=== PATIENT | female | born 1940 | race African-American/Black ===

== ENCOUNTER 2024-02-10 14:45 | Inpatient (IN) | payer OTHER ==
[2024-02-10 17:11] VITALS: BMI 15.5
[2024-02-10] MEDS ORDERED: IBUPROFEN 600 MG TABLET (FP) PO PRN (17:45)
[2024-02-10] MEDS ORDERED: BENZOCAINE/MENTHOL (CHLORASEPTIC ) LOZENGE MM PRN (17:45)
[2024-02-10] MEDS ORDERED: IBUPROFEN 400 MG TABLET (FP) PO PRN (17:45)
[2024-02-10] MEDS ORDERED: MAG HYDROX/AL HYDROX/SIMETH 30 ML UNIT-DOSE CUP PO PRN (17:45)
[2024-02-10] MEDS ORDERED: BENZONATATE 200 MG CAPSULE PO PRN (17:45)
[2024-02-10] MEDS ORDERED: MAGNESIUM HYDROX 2400MG/30ML ORAL SUSPENSION 30 ML CUP PO PRN (17:45)
[2024-02-10] MEDS ORDERED: NICOTINE POLACRILEX 2 MG GUM BUC PRN (17:45)
[2024-02-10] MEDS ORDERED: POLYETHYLENE GLYCOL (HEALTHYLAX) 3350 17 GM PACKET PO PRN (17:45)
[2024-02-10] MEDS ORDERED: guaiFENesin 600 MG TABLET.ER (FP) PO PRN (17:45)
[2024-02-10] MEDS ORDERED: NICOTINE POLACRILEX 2 MG LOZENGE BC PRN (17:45)
[2024-02-10] MEDS ORDERED: LOPERAMIDE HCL 2 MG CAPSULE PO PRN (17:45)
[2024-02-10] MEDS ORDERED: P-EPHED 60MG/TRIPROLIDI 2.5MG TABLET PO PRN (17:45)
[2024-02-10] MEDS ORDERED: ALBUTEROL SO4 2.5/IPRATROPIUM 0.5 INH SOL 3 ML VIAL.NEB. NEB PRN (17:47)
[2024-02-10] MEDS ORDERED: INSULIN (NOVOLOG) ASPART 100 UNITS/ML 10ML VIAL ONE (20:10)
[2024-02-10] MEDS: INSULIN ASPART SLIDING SCALE (NOVOLOG) 1 VIAL SQ SCH (20:17)
[2024-02-10] MEDS: THIAMINE 100 MG TABLET PO SCH (22:33)
[2024-02-10] MEDS: MELATONIN 5 MG TABLETS PO SCH (22:33)
[2024-02-10] MEDS: ATORVASTATIN CA 20 MG TABLET (FP) PO SCH (22:33)
[2024-02-11] MEDS: EMPAGLIFLOZIN (JARDIANCE) 25 MG TABLET PO SCH (07:13)
[2024-02-11] MEDS: glipiZIDE 10 MG TABLET (FP) PO SCH (07:14)
[2024-02-11] MEDS ORDERED: INSULIN ASPART SLIDING SCALE (NOVOLOG) 1 VIAL SQ ONE (07:23)
[2024-02-11] MEDS: PRENATAL VITAMINS W/ FOLIC ACID TABLET (FP) PO SCH (10:55)
[2024-02-11 14:44] LABS: POTASSIUM 4.6 mmol/L (3.5-5.1)
[2024-02-11 14:50] LABS: ALBUMIN 2.9 g/dl (3.4-5.0)
[2024-02-11 14:51] LABS: BLOOD UREA NITROGEN 14.7 mg/dL (7-18)
[2024-02-11 14:54] LABS: CREATININE 0.9 mg/dL (0.55-1.3)
[2024-02-11 14:55] LABS: BILIRUBIN,TOTAL 1.4 mg/dL (0.2-1); TOT PROT 6.8 g/dl (6.4-8.2)
[2024-02-11 14:57] LABS: HEMATOCRIT 47.9 % (32.4-45.2); HEMOGLOBIN 14.7 GM/dL (10.7-15.3); MCH 22.6 pg (25.7-33.7); MCHC 30.8 g/dl (32.0-36.0); MEAN CELL VOLUME 73.4 fl (80-96); PLATELET COUNT 145 10^3/uL (134-434); RBC 6.52 M/mm3 (3.60-5.2); RDW 16.5 % (11.6-15.6); WHITE BLOOD COUNT 4.2 K/mm3 (4.0-10.0)
[2024-02-11] MEDS ORDERED: INSULIN (NOVOLOG) ASPART 100 UNITS/ML 10ML VIAL ONE (17:28)
[2024-02-11] MEDS: GABAPENTIN 300 MG CAPSULE PO SCH (17:29)
[2024-02-11] MEDS: ALBUTEROL SO4 2.5/IPRATROPIUM 0.5 INH SOL 3 ML VIAL.NEB. NEB ONE (21:09)
[2024-02-12] MEDS: OLANZapine 2.5 MG TABLET PO SCH (00:40)
[2024-02-12] MEDS ORDERED: INSULIN (NOVOLOG) ASPART 100 UNITS/ML 10ML VIAL ONE (06:20)
[2024-02-12] MEDS ORDERED: glipiZIDE 5 MG TABLET (FP) ONE (06:57)
[2024-02-13] MEDS ORDERED: glipiZIDE 5 MG TABLET (FP) ONE (07:19)
[2024-02-13] MEDS ORDERED: INSULIN (NOVOLOG) ASPART 100 UNITS/ML 10ML VIAL ONE (11:52)
[2024-02-14] MEDS ORDERED: glipiZIDE 5 MG TABLET (FP) ONE (07:19)
[2024-02-14] MEDS ORDERED: INSULIN (NOVOLOG) ASPART 100 UNITS/ML 10ML VIAL ONE ×2 (11:57→21:51)
[2024-02-14] MEDS: ACETAMINOPHEN 325 MG TABLET (FP) PO PRN (15:57)
[2024-02-15] MEDS ORDERED: glipiZIDE 5 MG TABLET (FP) ONE (07:35)
[2024-02-15] MEDS ORDERED: INSULIN (NOVOLOG) ASPART 100 UNITS/ML 10ML VIAL ONE ×2 (12:16→16:40)
[2024-02-16] MEDS ORDERED: INSULIN (NOVOLOG) ASPART 100 UNITS/ML 10ML VIAL ONE ×3 (06:33→22:15)
[2024-02-17] MEDS ORDERED: INSULIN (NOVOLOG) ASPART 100 UNITS/ML 10ML VIAL ONE ×3 (06:21→22:06)
[2024-02-18] MEDS: sitaGLIPtin PHOSPHATE 50 MG TABLET PO SCH (11:12)
[2024-02-18] MEDS ORDERED: INSULIN (NOVOLOG) ASPART 100 UNITS/ML 10ML VIAL ONE (12:25)
[2024-02-19] MEDS ORDERED: INSULIN (NOVOLOG) ASPART 100 UNITS/ML 10ML VIAL ONE ×4 (07:08→21:57)
[2024-02-19 07:29] VITALS: RESP 18
[2024-02-20] MEDS ORDERED: INSULIN (NOVOLOG) ASPART 100 UNITS/ML 10ML VIAL ONE (11:58)
[2024-02-20 17:12] VITALS: BP 109/63; PULSE 99; TEMP 98
== END 2024-02-20 21:45 | disposition short-term general hospital (02) | DRG 895 ==
LOC: YASAS 14:45 → Y3NR 19:42 → Y5N 02-11 14:46
PROVIDERS: ADMIT Allergy & Immunology; ATTEND Psychiatry & Neurology Pain Medicine
PROC: HZ42ZZZ Group Counseling for Substance Abuse Treatment, Cognitive-Behavioral (ICD-10-PCS; principal; 2024-02-10)
DX: F14.20 Cocaine dependence, uncomplicated (principal); F20.0 Paranoid schizophrenia; Z68.1 Body mass index [BMI] 19.9 or less, adult; I11.0 Hypertensive heart disease with heart failure; I50.9 Heart failure, unspecified; E78.5 Hyperlipidemia, unspecified; E11.9 Type 2 diabetes mellitus without complications; Z79.84 Long term (current) use of oral hypoglycemic drugs; R62.7 Adult failure to thrive; R06.02 Shortness of breath; R60.0 Localized edema; M54.50 Low back pain, unspecified; G89.29 Other chronic pain
CPT/HCPCS: 36415; 71045-TC-FY; 80053; 80305; 80307; 82962; 85027; 86780; 87811; 93005; 93010; 94640

== ENCOUNTER 2024-02-20 19:12 | Inpatient (IN) | payer OTHER ==
[2024-02-20] MEDS ORDERED: GABAPENTIN 300 MG CAPSULE ONE (20:46)
[2024-02-20] MEDS ORDERED: FUROSEMIDE 40 MG/4 ML INJECTABLE VIAL ONE (20:47)
[2024-02-20 20:58] LABS: HEMOGLOBIN 13.3 GM/dL (10.7-15.3); MCH 22.5 pg (25.7-33.7); MEAN CELL VOLUME 72.7 fl (80-96); MEAN PLT VOLUME 10.2 fl (7.5-11.1); PLATELET COUNT 181 10^3/uL (134-434); RBC 5.91 M/mm3 (3.60-5.2); RDW 16.6 % (11.6-15.6); WHITE BLOOD COUNT 7.6 K/mm3 (4.0-10.0)
[2024-02-20] MEDS: GABAPENTIN 300 MG CAPSULE PO ONE (20:58)
[2024-02-20] MEDS: FUROSEMIDE 40 MG/4 ML INJECTABLE VIAL IVPUSH ONE (20:58)
[2024-02-20 21:09] LABS: CHLORIDE 98 mmol/L (98-107); SODIUM 136 mmol/L (136-145)
[2024-02-20 21:11] LABS: BLOOD UREA NITROGEN 38.8 mg/dL (7-18); CO2 29 mmol/L (21-32); GLUCOSE,RANDOM 183 mg/dL (74-106)
[2024-02-20 21:13] LABS: ANION GAP 9 mmol/L (4-13); POTASSIUM 6.5 mmol/L (3.5-5.1)
[2024-02-20 21:14] LABS: CREATININE 1.1 mg/dL (0.55-1.3); SGOT/AST 177 U/L (15-37); SGPT/ALT 126 U/L (13-61)
[2024-02-20 21:18] LABS: ALK PHOS 382 U/L (45-117)
[2024-02-20] MEDS ORDERED: SODIUM ZIRCONIUM CYCLOSILICATE (LOKELMA) 10 GM PACKET ONE (21:18)
[2024-02-20 21:19] LABS: N-TERMINAL BNP 19782.5 pg/ml (5-450)
[2024-02-20] MEDS: SODIUM ZIRCONIUM CYCLOSILICATE (LOKELMA) 5 GM PACKET PO SCH (21:24)
[2024-02-20] MEDS ORDERED: CALCIUM GLUC IN NACL, ISO-OSM 1 GM/50 ML BAG IVPB ONE (21:40)
[2024-02-20] MEDS: CALCIUM GLUCONATE 10% - 1,000 MG/10 ML VIAL IVPUSH ONE (21:50)
[2024-02-20 22:05] LABS: HIV INTERPRETATION NEGATIVE (NEGATIVE)
[2024-02-20 22:31] LABS: ANION GAP 9 mmol/L (4-13); CALCIUM 9.1 mg/dL (8.5-10.1); CHLORIDE 99 mmol/L (98-107); CO2 27 mmol/L (21-32); GLUCOSE,RANDOM 182 mg/dL (74-106); POTASSIUM 6.4 mmol/L (3.5-5.1); SODIUM 136 mmol/L (136-145)
[2024-02-20 22:34] LABS: CREATININE 1.1 mg/dL (0.55-1.3)
[2024-02-20] MEDS ORDERED: INSULIN REGULAR HUMAN 100 UNITS/ML *VIAL ONE (23:08)
[2024-02-20] MEDS ORDERED: DEXTROSE 50%-WATER 25 GM/50 ML DISP.SYRIN ONE (23:08)
[2024-02-20] MEDS: DEXTROSE 50%-WATER - 25 GM/50 ML VIAL IVPUSH ONE (23:39)
[2024-02-20] MEDS: INSULIN REGULAR HUMAN 100 UNITS/ML *VIAL IVPUSH ONE (23:39)
[2024-02-21] MEDS: FUROSEMIDE 40 MG/4 ML INJECTABLE VIAL IVPUSH SCH ×2 (00:09→12:20)
[2024-02-21] MEDS: INSULIN ASPART SLIDING SCALE (NOVOLOG) 1 VIAL SQ SCH (06:32)
[2024-02-21 08:14] LABS: BASO % 0.4 % (0-2.0); EOS % 0.1 % (0-4.5); HEMATOCRIT 40.1 % (32.4-45.2); HEMOGLOBIN 12.6 GM/dL (10.7-15.3); LYMPH % 17.5 % (8-40); MCH 22.8 pg (25.7-33.7); MCHC 31.3 g/dl (32.0-36.0); MEAN CELL VOLUME 72.8 fl (80-96); MEAN PLT VOLUME 10.5 fl (7.5-11.1); MONO % 12.5 % (3.8-10.2); NEUT % 69.5 % (42.8-82.8); PLATELET COUNT 171 10^3/uL (134-434); RBC 5.51 M/mm3 (3.60-5.2); RDW 16.1 % (11.6-15.6); WHITE BLOOD COUNT 7.9 K/mm3 (4.0-10.0)
[2024-02-21 08:50] LABS: POTASSIUM 5.7 mmol/L (3.5-5.1)
[2024-02-21 08:54] LABS: ALBUMIN 2.8 g/dl (3.4-5.0); MAGNESIUM 2.5 mg/dL (1.8-2.4)
[2024-02-21 08:55] LABS: BLOOD UREA NITROGEN 42.2 mg/dL (7-18)
[2024-02-21 08:57] LABS: CREATININE 1.1 mg/dL (0.55-1.3)
[2024-02-21 08:59] LABS: PHOSPHOROUS 6.2 mg/dL (2.5-4.9); TOT PROT 6.5 g/dl (6.4-8.2)
[2024-02-21 09:00] LABS: BILIRUBIN,TOTAL 0.9 mg/dL (0.2-1)
[2024-02-21] MEDS: GABAPENTIN 300 MG CAPSULE PO SCH (09:38)
[2024-02-21] MEDS: HEPARIN NA (PORCINE) 5,000 UNITS/ML 1ML VIAL SQ SCH (09:38)
[2024-02-21] MEDS: FLUTICASONE/UMECLIDIN/VILANTER(100-62.5-25 TRELEGY ELLIPTA) INAHLER IH SCH (10:30)
[2024-02-21] MEDS: OLANZapine 2.5 MG TABLET PO SCH (21:44)
[2024-02-21] MEDS: SODIUM ZIRCONIUM CYCLOSILICATE (LOKELMA) 5 GM PACKET PO SCH (21:45)
[2024-02-21] MEDS ORDERED: ATORVASTATIN CA 20 MG TABLET (FP) PO SCH (22:00)
[2024-02-22] MEDS: FUROSEMIDE 40 MG/4 ML INJECTABLE VIAL IVPUSH SCH (06:12)
[2024-02-22 08:02] LABS: BASO % 0.8 % (0-2.0); EOS % 0.3 % (0-4.5); HEMATOCRIT 38.5 % (32.4-45.2); HEMOGLOBIN 11.9 GM/dL (10.7-15.3); LYMPH % 18.6 % (8-40); MCH 22.5 pg (25.7-33.7); MCHC 30.9 g/dl (32.0-36.0); MEAN CELL VOLUME 72.9 fl (80-96); MEAN PLT VOLUME 10.2 fl (7.5-11.1); MONO % 12.5 % (3.8-10.2); NEUT % 67.8 % (42.8-82.8); PLATELET COUNT 171 10^3/uL (134-434); RBC 5.29 M/mm3 (3.60-5.2); RDW 15.9 % (11.6-15.6); WHITE BLOOD COUNT 5.9 K/mm3 (4.0-10.0)
[2024-02-22 08:14] LABS: POTASSIUM 4.1 mmol/L (3.5-5.1)
[2024-02-22 08:18] LABS: ALBUMIN 2.6 g/dl (3.4-5.0); BLOOD UREA NITROGEN 37.4 mg/dL (7-18)
[2024-02-22 08:23] LABS: TOT PROT 6.3 g/dl (6.4-8.2)
[2024-02-22] MEDS: MELATONIN 5 MG TABLETS PO PRN (21:31)
[2024-02-22 23:58] VITALS: BMI 19.3
[2024-02-23 08:31] LABS: INR 1.25 (0.83-1.09)
[2024-02-23 08:41] LABS: HEMATOCRIT 37.2 % (32.4-45.2); HEMOGLOBIN 11.5 GM/dL (10.7-15.3); MCH 22.5 pg (25.7-33.7); MCHC 30.9 g/dl (32.0-36.0); MEAN CELL VOLUME 72.8 fl (80-96); MEAN PLT VOLUME 9.7 fl (7.5-11.1); PLATELET COUNT 175 10^3/uL (134-434); RBC 5.11 M/mm3 (3.60-5.2); RDW 15.9 % (11.6-15.6); WHITE BLOOD COUNT 5.8 K/mm3 (4.0-10.0)
[2024-02-23 08:51] LABS: POTASSIUM 3.9 mmol/L (3.5-5.1)
[2024-02-23 08:57] LABS: ALBUMIN 2.5 g/dl (3.4-5.0); BLOOD UREA NITROGEN 30.1 mg/dL (7-18); CALCIUM 8.6 mg/dL (8.5-10.1)
[2024-02-23 09:00] LABS: CREATININE 0.9 mg/dL (0.55-1.3)
[2024-02-23 09:01] LABS: BILIRUBIN,TOTAL 0.8 mg/dL (0.2-1); TOT PROT 6.1 g/dl (6.4-8.2)
[2024-02-23] MEDS: TORSEMIDE 20 MG TABLET (FP) PO SCH (10:20)
[2024-02-23] MEDS: INSULIN (LEVEMIR) 100 UNITS/ML UNITS SQ SCH (21:08)
[2024-02-23 22:33] VITALS: BP 127/67; PULSE 99; RESP 20; TEMP 98.4
[2024-02-23] MEDS ORDERED: INSULIN (LEVEMIR) 100 UNITS/ML UNITS SQ SCH (22:37)
== END 2024-02-24 01:15 | disposition home or self-care (01) | DRG 291 ==
LOC: JER 19:12 → JERBED 21:35 → J4W 02-21 01:49
PROVIDERS: ADMIT Internal Medicine; ATTEND Internal Medicine
DX: I13.0 Hypertensive heart and chronic kidney disease with heart failure and stage 1 through stage 4 chronic kidney disease, or unspecified chronic kidney disease (principal); I50.23 Acute on chronic systolic (congestive) heart failure; J96.91 Respiratory failure, unspecified with hypoxia; F20.0 Paranoid schizophrenia; J90 Pleural effusion, not elsewhere classified; I45.2 Bifascicular block; I24.89 Other forms of acute ischemic heart disease; Z68.1 Body mass index [BMI] 19.9 or less, adult; F14.20 Cocaine dependence, uncomplicated; R18.8 Other ascites; R64 Cachexia; I42.8 Other cardiomyopathies; J45.909 Unspecified asthma, uncomplicated; F20.9 Schizophrenia, unspecified; J44.9 Chronic obstructive pulmonary disease, unspecified; E78.5 Hyperlipidemia, unspecified; F17.210 Nicotine dependence, cigarettes, uncomplicated; E87.5 Hyperkalemia; E11.65 Type 2 diabetes mellitus with hyperglycemia; K76.0 Fatty (change of) liver, not elsewhere classified; I08.1 Rheumatic disorders of both mitral and tricuspid valves; I25.10 Atherosclerotic heart disease of native coronary artery without angina pectoris; G47.00 Insomnia, unspecified; K80.20 Calculus of gallbladder without cholecystitis without obstruction
CPT/HCPCS: 0241U-QW; 36415; 71045-TC-FY; 71250-TC; 76705-TC; 80048; 80053; 80061; 82550; 82962; 83036; 83735; 83880; 84100; 84132; 84484; 85025; 85027; 85610; 86803; 87389; 93005; 93010; 93306-TC; 99285-25; J1644